=== PATIENT | female | born 1980 | race Asian ===

== ENCOUNTER → 2020-07-24 | Outpatient (CLI) | payer OTHER ==
--- NOTE | 2020-07-24 17:30 | RAD ---
Examination: 1. Digital bilateral diagnostic mammogram. 2. Bilateral Limited breast ultrasound. INDICATION: 39-year-old woman presenting with a right breast lump. Personal history of bilateral elidia st implants COMPARISON: None. This would be a baseline. TECHNIQUE: Bilateral CC and MLO views were obtained with implant displacement and without implant dis placement. A left ML view was also obtained in addition to a right CC spot compression view. Targeted ultrasound was also performed of the bilateral breasts. FINDINGS: Heterogeneously dense breast parenchyma. Bilateral subpectoral saline implants are partially imaged. There is no mammographic correlate to the area of reported palpable concern in the lower inner right breast as marked with a BB marker the skin surface. This was further evaluated by targeted right elidia st ultrasound which revealed no suspicious sonographic findings. Area of concern at the right 5 to 6: 00 position approximately 4.5 cm from the nipple show no sonographic correlate to the area of palpabl e concern and no axillary adenopathy. The left mammogram showed a possible asymmetry in the medial posterior breast on the CC view only edward t did not persist with additional mammographic views. Targeted ultrasound of the medial left breast s howed no suspicious sonographic findings. No axillary adenopathy. IMPRESSION: Benign findings. No evidence of malignancy and no correlate to the area of palpable concern as report ed by the patient. BI-RADS Category 2 Benign findings Recommend clinical management of the patient's area of palpable concern which should include biopsy o f any clinically suspicious findings if present. In the absence of any clinically suspicious findings , recommend age-appropriate routine annual mammographic screening starting at age 40 in average risk women. Electronically signed by: Ciara Zarate MD (07/24/2020 5:28 PM) [id number]
== END ==
LOC: MAMMO 08:55
PROVIDERS: ATTEND Nurse Practitioner Primary Care
DX: N63.10 Unspecified lump in the right breast, unspecified quadrant (principal); R92.2 Inconclusive mammogram
CPT/HCPCS: 76641; 77066